=== PATIENT | male | born 1960 | race Caucasian/White ===

== ENCOUNTER 2018-10-11 10:37 | Emergency (ER) | payer OTHER ==
[~2018-10-11] VITALS: Ht 180.3 cm; Wt 79.4 kg
--- NOTE | 2018-10-11 10:37 | NUR ---
Patient BIBA BLS, transferred to bed 3. RN evaluating patient at bedside.
[2018-10-11 10:39] VITALS: BP 189/108
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
--- NOTE | 2018-10-11 11:00 | NUR ---
Dr. Rollins evaluating patient at bedside.
[2018-10-11] MEDS ORDERED: MORPHINE SULFATE 4 MG/ML SYR IM ONE (11:15)
[2018-10-11] MEDS ORDERED: KETOROLAC 60 MG/2 ML VIAL IM ONE (11:15)
[2018-10-11] MEDS ORDERED: hydrOXYzine HCL 25 MG TAB PO ONE (11:15)
[2018-10-11] MEDS ORDERED: predniSONE 20 MG TAB PO ONE (11:15)
[2018-10-11] MEDS ORDERED: KETOROLAC 30 MG/ML VIAL IVP ONE (11:25)
[2018-10-11] MEDS ORDERED: NACL 0.9% 1,000 ML IV ONE (11:25)
[2018-10-11] MEDS ORDERED: MORPHINE SULFATE 4 MG/ML SYR IVP ONE (11:25)
--- NOTE | 2018-10-11 11:32 | NUR ---
Patient returned from CT scan. RN re-evaluating patient at bedside.
--- NOTE | 2018-10-11 14:53 | NUR ---
Patient discharged with BP 164/87, DENIES VALLES AT THIS TIME. Written and verbal after care instructions given and explained. Patient alert, oriented and verbalized understanding of instructions. Ambulatory with steady gait. All questions addressed prior to discharge. ID band removed. Patient advised to follow up with PMD. Rx of VOLTAREN given. Patient educated on indication of medication including possible reaction and side effects. Opportunity to ask questions provided and answered.
[2018-10-11 14:54] VITALS: BP 164/87
== END 2018-10-11 14:53 | disposition home or self-care (01) ==
LOC: MED 10:37
DX: S13.9XXA Sprain of joints and ligaments of unspecified parts of neck, initial encounter (principal); M54.6 Pain in thoracic spine; M54.5 Low back pain; I10 Essential (primary) hypertension; V43.52XA Car driver injured in collision with other type car in traffic accident, initial encounter; Y93.89 Activity, other specified; Y92.89 Other specified places as the place of occurrence of the external cause; Y99.8 Other external cause status
CPT/HCPCS: 71250; 72125; 74176; 96374; 96375; 99284; J1885; J2270; J7030; J7512

== ENCOUNTER 2020-04-11 23:14 | Emergency (ER) | payer OTHER ==
[~2020-04-11] VITALS: Ht 172.7 cm; Wt 73.0 kg
[2020-04-11 23:25] VITALS: BP 167/91
--- NOTE | 2020-04-11 23:25 | NUR ---
PT 59 Y/O MALE BIB SELF FOR C/O OPEN ABSCESS D/T "BUG BITE" X 3 DAYS AGO. PT NOTED WITH 3X2IN REDNESS ON ANTERIOR UPPER THIGH. OPEN SORE NOTED IN CENTER. NO BLOOD OR DRAINAGE NOTED AT THIS TIME. PT STATES THAT "I DRAINED OUT ALL THE PUS AT HOME." PT STATES 8/10 PAIN. TEMP: 100.1. VSS. BED LOCKED AND IN LOWEST POSTION. MEDHX: DENIES NKA
--- NOTE | 2020-04-11 23:30 | NUR ---
ERMD AT BEDSIDE.
[2020-04-11] MEDS ORDERED: SULFAMETH/TRIMETH DS 800/160MG 1 TAB PO ONE (23:35)
[2020-04-11] MEDS ORDERED: cephALEXin 500 MG CAP PO ONE (23:35)
[2020-04-11 23:45] VITALS: BP 167/91
--- NOTE | 2020-04-11 23:45 | NUR ---
Patient discharged with v/s stable. Written and verbal after care instructions given and explained. Patient alert, oriented and verbalized understanding of instructions. Ambulatory with to car. All questions addressed prior to discharge. ID band removed. Patient advised to follow up with PMD. Rx of BACTRIM, KEFLEX given. Patient educated on indication of medication including possible reaction and side effects. Opportunity to ask questions provided and answered.
== END 2020-04-11 23:45 | disposition home or self-care (01) ==
LOC: MED 23:14
DX: L03.115 Cellulitis of right lower limb (principal); I10 Essential (primary) hypertension; W57.XXXA Bitten or stung by nonvenomous insect and other nonvenomous arthropods, initial encounter; Y93.89 Activity, other specified; Y92.89 Other specified places as the place of occurrence of the external cause; Y99.8 Other external cause status
CPT/HCPCS: 99283

== ENCOUNTER 2020-10-02 14:39 | Emergency (ER) | payer OTHER ==
[~2020-10-02] VITALS: Ht 180.3 cm; Wt 79.4 kg
[2020-10-02 14:48] VITALS: BP 166/77
[2020-10-02] MEDS: LIDOCAINE/EPI 1% 1:100000 20 ML VIAL INJ ONE (15:29)
[2020-10-02] MEDS ORDERED: SULF-59 PO (15:49)
[2020-10-02] MEDS ORDERED: IBUP-2213 PO (15:49)
[2020-10-02] MEDS ORDERED: CEPH500C16 PO (15:49)
[2020-10-02 15:54] VITALS: BP 155/78
== END 2020-10-02 15:48 | disposition home or self-care (01) ==
LOC: MED 14:39
DX: L02.414 Cutaneous abscess of left upper limb (principal); I10 Essential (primary) hypertension
CPT/HCPCS: 10060; 99283; J2001

== ENCOUNTER 2021-01-21 22:13 | Emergency (ER) | payer OTHER ==
[~2021-01-21] VITALS: Ht 180.3 cm; Wt 79.4 kg
[~2021-01-21 22:13] MED LIST: CEPH500C16 PO; IBUP-2213 PO; IBUP-2218 PO; SULF-59 PO
[2021-01-21 22:30] VITALS: BP 135/89
--- NOTE | 2021-01-21 22:33 | NUR ---
TO LOBBY A/W BED AMBULATORY
--- NOTE | 2021-01-22 00:29 | NUR ---
PT AMBULATED TO BED 11
--- NOTE | 2021-01-22 00:30 | NUR ---
60 Y/O PATIENT PRESENTS TO ED WITH ABSCESS . PT STATES "I GOT A SPIDER BITE X 1 WEEK, I THOUGHT IT WAS GONNA GO AWAY UNTIL IT GOT BIG AND LOOKS INFECTED." . DENIES N/V/D; SKIN HAS ABSCESS; AAOX4 WITH EVEN AND STEADY GAIT; LUNGS CLEAR BL; HR EVEN AND REGULAR; PT DENIES ANY FEVER, CP, SOB, OR COUGH AT THIS TIME; PATIENT STATES PAIN OF 0/10 AT THIS TIME; VSS; PATIENT POSITIONED FOR COMFORT; HOB ELEVATED; BEDRAILS UP X2; BED DOWN. ER MD MADE AWARE OF PT STATUS. NKA PMH: DENIES
[2021-01-22] MEDS ORDERED: LIDOCAINE MPF 1% 10 MG/ML VIAL INJ ONE (01:20)
[2021-01-22] MEDS ORDERED: SULF-58 PO (02:02)
[2021-01-22 02:42] VITALS: BP 135/89
--- NOTE | 2021-01-22 02:42 | NUR ---
Patient discharged with v/s stable. Written and verbal after care instructions given and explained. Patient verbalized understanding. Ambulatory with steady gait. All questions addressed prior to discharge. Advised to follow up with PMD.
== END 2021-01-22 02:42 | disposition home or self-care (01) ==
LOC: MED 22:13
DX: L02.413 Cutaneous abscess of right upper limb (principal); I10 Essential (primary) hypertension; F17.200 Nicotine dependence, unspecified, uncomplicated; Z79.899 Other long term (current) drug therapy; Z85.46 Personal history of malignant neoplasm of prostate
CPT/HCPCS: 10060; 99283; J2001

== ENCOUNTER 2021-02-08 20:54 | Emergency (ER) | payer OTHER ==
[~2021-02-08] VITALS: Ht 180.3 cm; Wt 77.1 kg
[~2021-02-08 20:54] MED LIST changes: +SULF-58 PO
[2021-02-08 21:34] VITALS: BP 149/81
--- NOTE | 2021-02-08 21:40 | NUR ---
TO LOBBY FOLLOWING TRIAGE
[2021-02-08] MEDS ORDERED: ALBUTEROL HFA MDI 90 MCG/ACTUATION 8 GM INH ONE (23:05)
--- NOTE | 2021-02-08 23:21 | NUR ---
SPOKE TO RT MICHI AND HE WILL BE COMING FOR BREATHING TX.
--- NOTE | 2021-02-08 23:37 | NUR ---
REEVALUATED PT POST BREATHING TX. UPPER BILATERAL LUNG SOUNDS CLEAR. BILATERAL LOWER LUNGS DIMINISHED. O2 ROOM AIR 96%. NO NOTED RESPIRATORY DISTRESS, RESPIRATIONS EVEN AND UNLABORED.
[2021-02-09 00:05] VITALS: BP 132/77
[2021-02-09] MEDS ORDERED: ALBU0.0912 INH (00:53)
--- NOTE | 2021-02-09 01:28 | NUR ---
Patient discharged with v/s stable. Written and verbal after care instructions given and explained. Patient alert, oriented and verbalized understanding of instructions. Ambulatory with steady gait. All questions addressed prior to discharge. ID band removed. Patient advised to follow up with PMD. Rx of PROVENTIL HFA MDI given. Patient educated on indication of medication including possible reaction and side effects. Opportunity to ask questions provided and answered.
== END 2021-02-09 01:28 | disposition home or self-care (01) ==
LOC: MED 20:54
DX: J40 Bronchitis, not specified as acute or chronic (principal); Z20.822 Contact with and (suspected) exposure to COVID-19; I10 Essential (primary) hypertension
CPT/HCPCS: 71045; 94664; 99284; 99285

== ENCOUNTER 2021-02-26 07:33 | Emergency (ER) | payer OTHER ==
[~2021-02-26] VITALS: Ht 180.3 cm; Wt 77.1 kg
[~2021-02-26 07:33] MED LIST changes: +ALBU0.0912 INH
[2021-02-26 07:39] VITALS: BP 112/62
--- NOTE | 2021-02-26 08:07 | NUR ---
UNABLE TO FIND PT IN LOBBY, WILL ATTEMPT AGAIN SOON
--- NOTE | 2021-02-26 08:10 | NUR ---
Patient ambulated to bed 08 with steady/even gait.
--- NOTE | 2021-02-26 08:19 | NUR ---
Dr. Craven is evaluating patient at bedside.
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
[2021-02-26] MEDS ORDERED: SULFAMETH/TRIMETH DS 800/160MG 1 TAB PO ONE (08:35)
[2021-02-26] MEDS ORDERED: ceFAZolin 1,000 MG VIAL IM ONE (08:35)
[2021-02-26] MEDS ORDERED: SULF-59 PO (09:22)
[2021-02-26] MEDS ORDERED: CEPH500C16 PO (09:22)
[2021-02-26 09:30] VITALS: BP 117/68
--- NOTE | 2021-02-26 09:38 | NUR ---
Patient discharged with v/s stable. Written and verbal after care instructions given and explained. Patient alert, oriented and verbalized understanding of instructions. Ambulatory with steady gait. All questions addressed prior to discharge. ID band removed. Patient advised to follow up with PMD. Rx of Keflex, Bactrim Ds Tablet given. Patient educated on indication of medication including possible reaction and side effects. Opportunity to ask questions provided and answered.
== END 2021-02-26 09:38 | disposition home or self-care (01) ==
LOC: MED 07:33
DX: L03.011 Cellulitis of right finger (principal); I10 Essential (primary) hypertension; F15.10 Other stimulant abuse, uncomplicated; Z85.46 Personal history of malignant neoplasm of prostate
CPT/HCPCS: 96372; 99283; J0690

== ENCOUNTER 2021-04-06 11:26 | Emergency (ER) | payer OTHER ==
[~2021-04-06] VITALS: Ht 180.3 cm; Wt 73.0 kg
[2021-04-06 11:40] VITALS: BP 153/81
--- NOTE | 2021-04-06 11:42 | NUR ---
PT SENT TO LOBBY TO WAIT FOR MSE/AVAILABLE BED.
--- NOTE | 2021-04-06 11:47 | NUR ---
60/M presents to ED with c/o swelling, erythema to left hand for the x3 days. Patient denies any fever or chills. Patient states the swelling in his hand began to have drainage yesterday. Pt c/o pain today. No active drainage noted.
[2021-04-06] MEDS ORDERED: KETOROLAC 30 MG/ML VIAL IM ONE (11:55)
[2021-04-06] MEDS ORDERED: BACITRACIN OINT 500 UNITS/GM PKT TP ONE (11:55)
[2021-04-06] MEDS ORDERED: SULF-59 PO (11:58)
[2021-04-06] MEDS ORDERED: NAPR-54 PO (11:58)
--- NOTE | 2021-04-06 12:00 | NUR ---
PT'S WOUND CLEANED AND IRRIGATED WITH NORMAL SALINE AND APPLIED BACITRACIN TO PT'S WOUND AND DRESSED WITH NON-ADHERENT GAUZE PAD AND WRAPPED WITH 3" GUAZE ROLL.
--- NOTE | 2021-04-06 12:14 | NUR ---
Patient discharged with v/s stable. Written and verbal after care instructions given and explained. Patient alert, oriented and verbalized understanding of instructions. Ambulatory with steady gait. All questions addressed prior to discharge. ID band removed. Patient advised to follow up with PMD. Rx of Bactrim DS and Naproxen given. Patient educated on indication of medication including possible reaction and side effects. Opportunity to ask questions provided and answered.
== END 2021-04-06 12:14 | disposition home or self-care (01) ==
LOC: MED 11:26
DX: L03.114 Cellulitis of left upper limb (principal); I10 Essential (primary) hypertension; Z85.46 Personal history of malignant neoplasm of prostate; Z79.899 Other long term (current) drug therapy
CPT/HCPCS: 96372; 99283; J1885

== ENCOUNTER 2021-08-02 10:25 | Emergency (ER) | payer OTHER ==
[~2021-08-02] VITALS: Ht 180.3 cm; Wt 79.4 kg
[~2021-08-02 10:25] MED LIST changes: +NAPR-54 PO
[2021-08-02 11:01] VITALS: BP 157/79
[2021-08-02] MEDS ORDERED: ACETAMINOPHEN EXTRA STRENGTH 500 MG TAB PO ONE (11:10)
[2021-08-02 13:12] LABS: BASOPHILS % (AUTO) 0.2 % (0.0-2.0); EOSINOPHILS % (AUTO) 0.2 % (0.0-4.0); HEMATOCRIT 35.4 % (36-52); HEMOGLOBIN 12.1 g/dL (12.0-18.0); LYMPHOCYTES # (AUTO) 0.5 K/uL (2.0-11.5); LYMPHOCYTES % (AUTO) 9.5 % (20.5-51.1); MEAN CORPUSCULAR HEMOGLOBIN 32 pg (27-31); MEAN CORPUSCULAR HGB CONC 34 g/dL (33-37); MEAN CORPUSCULAR VOLUME 92.3 fL (80-94); MONOCYTES # (AUTO) 0.6 K/uL (0.8-1.0); MONOCYTES % (AUTO) 11.3 % (1.7-9.3); NEUTROPHILS # (AUTO) 4.1 K/uL (1.8-7.7); NEUTROPHILS % (AUTO) 78.8 % (42.2-75.2); PLATELET COUNT (AUTO) 327 K/uL (140-450); RED BLOOD CELL COUNT(AUTO) 3.84 MIL/uL (4.20-6.10); RED CELL DISTRIBUTION WIDTH 13.6 % (11.6-13.7); WHITE BLOOD COUNT (AUTO) 5.2 K/uL (4.8-10.8)
[2021-08-02 13:39] LABS: ALBUMIN 3.2 g/dL (3.4-5.0); ANION GAP 10.7 (8-16); CARBON DIOXIDE 28.8 mmol/L (21-32); CREATININE 1.6 mg/dL (0.6-1.3); POTASSIUM 3.5 mmol/L (3.5-5.1); TOTAL BILIRUBIN 0.2 mg/dL (0.0-1.0)
[2021-08-02] MEDS ORDERED: ACET-10509 PO (14:14)
[2021-08-02] MEDS ORDERED: AZIT250T4 PO (14:14)
[2021-08-02] MEDS ORDERED: PROM118S5 PO (14:14)
--- NOTE | 2021-08-02 14:20 | NUR ---
momo swab done. walked to lab
[2021-08-02 14:24] VITALS: BP 157/79
--- NOTE | 2021-08-02 14:25 | NUR ---
Patient discharged with v/s stable. Written and verbal after care instructions given and explained. Patient alert, oriented and verbalized understanding of instructions. Ambulatory with steady gait. All questions addressed prior to discharge. ID band removed. Patient advised to follow up with PMD. Rx of promethazine-dm syrup, tylenol extra strength, azithromycin given. Patient educated on indication of medication including possible reaction and side effects. Opportunity to ask questions provided and answered.
== END 2021-08-02 14:25 | disposition home or self-care (01) ==
LOC: MED 10:25
DX: B34.9 Viral infection, unspecified (principal); Z20.822 Contact with and (suspected) exposure to COVID-19; R05.9 Cough, unspecified; R42 Dizziness and giddiness; R68.83 Chills (without fever); I10 Essential (primary) hypertension; Z79.899 Other long term (current) drug therapy; Z85.46 Personal history of malignant neoplasm of prostate
CPT/HCPCS: 36415; 71045; 80053; 84484; 85025; 93005; 99285

== ENCOUNTER 2021-11-17 21:16 | Emergency (ER) | payer OTHER ==
[~2021-11-17] VITALS: Ht 180.3 cm; Wt 71.7 kg
[~2021-11-17 21:16] MED LIST changes: +ACET-10509 PO; +AZIT250T4 PO; +PROM118S5 PO
[2021-11-17 21:35] VITALS: BP 144/75
--- NOTE | 2021-11-17 21:46 | NUR ---
Dr. Fried at triage to exam patient.
[2021-11-17] MEDS ORDERED: ONDANSETRON 4 MG TAB PO ONE (22:00)
[2021-11-17 22:57] VITALS: BP 128/78
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
[2021-11-18] MEDS ORDERED: CETI-403 PO ×2 (19:41→20:07)
== END 2021-11-17 22:57 | disposition home or self-care (01) ==
LOC: MED 21:16
DX: R42 Dizziness and giddiness (principal); R21 Rash and other nonspecific skin eruption; Z72.89 Other problems related to lifestyle; I10 Essential (primary) hypertension; Z85.46 Personal history of malignant neoplasm of prostate; Z79.2 Long term (current) use of antibiotics; Z79.899 Other long term (current) drug therapy; Z79.1 Long term (current) use of non-steroidal anti-inflammatories (NSAID)
CPT/HCPCS: 99281

== ENCOUNTER 2021-11-18 14:08 | Emergency (ER) | payer OTHER ==
--- NOTE | 2021-11-18 14:18 | NUR ---
ATTEMPTED TO CALL TO TRIAGE, NO ANSWER
--- NOTE | 2021-11-18 14:38 | NUR ---
SECOND ATTEMPT TO CALL TO TRIAGE, NO ANSWER.
--- NOTE | 2021-11-18 15:13 | NUR ---
PATIENT LEFT WITHOUT BEING SEEN BY DR. MATOS. NO FURTHER CARE PROVIDED FOR PATIENT.
--- NOTE | 2021-11-18 15:13 | NUR ---
THIRD ATTEMPT TO CALL TO TRIAGE, NO ANSWER
[2021-11-18] MEDS ORDERED: CETI-403 PO ×2 (19:41→20:07)
== END 2021-11-18 15:13 | disposition left against medical advice (07) ==
LOC: MED 14:08
DX: Z53.21 Procedure and treatment not carried out due to patient leaving prior to being seen by health care provider (principal)

== ENCOUNTER 2021-11-18 18:39 | Emergency (ER) | payer OTHER ==
[~2021-11-18] VITALS: Ht 180.3 cm; Wt 68.9 kg
[2021-11-18 18:51] VITALS: BP 128/45
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
[2021-11-18] MEDS ORDERED: CETI-403 PO ×2 (19:41→20:07)
--- NOTE | 2021-11-18 20:05 | NUR ---
CLEARED FOR DISCHARED BY CODY SHELDON. PT GIVEN RX OF CLARITIN. MEDICATION ADMINISTRATION AND SIDE EFFECTS EXPLAINED. PT PROVIDED WITH MEAL.
== END 2021-11-18 20:04 | disposition home or self-care (01) ==
LOC: MED 18:39
DX: R21 Rash and other nonspecific skin eruption (principal); L29.9 Pruritus, unspecified; I10 Essential (primary) hypertension; Z85.46 Personal history of malignant neoplasm of prostate; Z79.899 Other long term (current) drug therapy; Z79.2 Long term (current) use of antibiotics; Z79.1 Long term (current) use of non-steroidal anti-inflammatories (NSAID)
CPT/HCPCS: 99282

== ENCOUNTER 2021-11-19 16:00 | Emergency (ER) | payer OTHER ==
[~2021-11-19] VITALS: Ht 177.8 cm; Wt 77.1 kg
[~2021-11-19 16:00] MED LIST changes: +CETI-403 PO
[2021-11-19 16:08] VITALS: BP 157/63
--- NOTE | 2021-11-19 18:10 | NUR ---
PT AMBULATED TO BED 3
--- NOTE | 2021-11-19 18:41 | NUR ---
PATIENT ELOPED FROM FACILITY. DISCHARGE INSTRUCTIONS NOT GIVEN TO PATIENT. DR. SOUZA NOTIFIED.
== END 2021-11-19 18:41 | disposition left against medical advice (07) ==
LOC: MED 16:00
DX: F10.129 Alcohol abuse with intoxication, unspecified (principal); I10 Essential (primary) hypertension; Z85.46 Personal history of malignant neoplasm of prostate; Z79.899 Other long term (current) drug therapy
CPT/HCPCS: 99283